=== PATIENT | male | born 1985 | race Caucasian/White ===

== ENCOUNTER 2018-08-04 09:35 | Emergency (ER) | payer OTHER ==
[2018-08-04 09:48] VITALS: BP 139/88
--- NOTE | 2018-08-04 10:25 | ED Physician Documentation ---
History of Present Illness - Stated complaint Stated Complaint: FISH HOOK ON R HAND - Chief complaint Chief Complaint: Trauma Ext - History obtained from History obtained from: Patient - History of Present Illness Timing: Prior to arrival - Additonal information Additional information: Patient is a previously healthy, right-handed, 33-year-old male presenting with a fishhook embedded in the distal aspect of his right ring finger. Patient was fishing earlier this morning when this occurred. Patient has been unable to dislodge the fishhook. Tetanus current. Patient reports pain with movement, but otherwise has no significant complaints. Patient denies change in strength, range of motion, or sensation to hand. Patient also denies any other injuries. No other improving or worsening factors noted. Review of Systems Skin: reports: Other (fish hook) PD PAST MEDICAL HISTORY - Past Medical History Neuro: Migraines - Past Surgical History Past Surgical History: No - Present Medications Home Medications: Ambulatory Orders Medication Instructions Recorded Confirmed Amox/Clav 875/125 [Augmentin] 1 each PO Q12H #14 tablet 08/04/18 HYDROcod/ACETAM 5/325 [Dacoma 5/325] 1 each PO Q6H #10 tablet 08/04/18 - Allergies Allergies/Adverse Reactions: Allergies Allergy/AdvReac Type Severity Reaction Status Date / Time No Known Drug Allergies Allergy Verified 08/04/18 09:48 - Social History Does the pt smoke?: No Smoking Status: Never smoker Does the pt drink ETOH?: No Does the pt have substance abuse?: No PD ED PE NORMAL - Vitals Vital signs reviewed: Yes - General General: Alert and oriented X 3, No acute distress, Well developed/nourished - HEENT HEENT: Atraumatic - Cardiac Cardiac: Strong equal pulses (Cap refill brisk) - Derm Derm: Normal color, Warm and dry, No rash, Other (Fish hook in right finger) - Extremities Extremities: No deformity, No tenderness to palpate - Neuro Neuro: Alert and oriented X 3, No motor deficit, No sensory deficit - Psych Psych: Normal mood, Normal affect Results - Vitals Vitals: Vital Signs - 24 hr 08/04/18 09:46 Temperature 36.7 C Heart Rate 80 Respiratory 18 Rate Blood Pressure 139/88 H O2 Saturation 98 Oxygen O2 Source Room air Procedures - Regional nerve block Nerve block site: Digital - note digit(s) Right / left: Right (right ring) Nerve block anesthesia: Lidocaine 1% Nerve block aftercare: Moderate Anesthesia, Patient tolerated well, No complications PD MEDICAL DECISION MAKING - ED course Complexity details: reviewed results, re-evaluated patient, considered differential, d/w patient, d/w family ED course: Patient presenting with embedded fish hook in his hand. X-rays obtained which not find evidence of being lodged in the bone or other complicating issues. Digital block performed and fishhook was able to be removed. Given the situation, felt appropriate to start antibiotics to prevent infection, as well as give pain medications to help relieve discomfort. Discussed other supportive cares, hygiene, return precautions, and appropriate follow-up. Patient voiced understanding and is comfortable with discharge plan. Departure - Departure Disposition: 01 Home, Self Care Clinical Impression: Finger injury Condition: Good Instructions: ED Laceration Hand Follow-Up: your,doctor [Other] - Within 3 Days Prescriptions: Amox/Clav 875/125 [Augmentin] 1 each PO Q12H #14 tablet HYDROcod/ACETAM 5/325 [[place] 5/325] 1 each PO Q6H #10 tablet Comments: Please keep wound clean and dry using running water and soap only. Do not submerge underwater. Please take antibiotics as prescribed to prevent infection. May apply bacitracin or Neosporin daily and appropriate bandaging. Please also use Dacoma as prescribed for pain control. If taking Dacoma, do not combine with alcohol, Tylenol, or driving. Dacoma can cause constipation and you may consider using stool softener or laxative. If not using Dacoma, please use ibuprofen/Tylenol. Follow-up with primary care physician in next 2 to 3 days and return to ED sooner if experience worsening symptoms or other concerns. Discharge Date/Time: 08/04/18 13:27
[2018-08-04] MEDS ORDERED: LIDOCAINE 1% 2 ML VIAL SUBQ STA (12:23)
--- NOTE | 2018-08-04 13:27 | XRAY Report ---
Reason: fish hook placement Procedure Date: 08/04/2018 Accession Number: [id number] / [id number] Procedure: XR - Hand 3 View RT CPT Code: FULL RESULT: EXAM: RIGHT HAND RADIOGRAPHY EXAM DATE: 08/04/2018 11:28 AM. CLINICAL HISTORY: Fish hook placement. COMPARISON: None. TECHNIQUE: 3 views. FINDINGS: Bones: No fractures or bone lesions. Joints: Unremarkable. Soft Tissues: Marmet projects over the distal fourth digit. IMPRESSION: 1. No acute osseous abnormality. 2. Marmet projects over the distal fourth digit. RADIA
== END 2018-08-04 13:27 | disposition home or self-care (01) ==
LOC: ED 09:35
DX: S61.244A Puncture wound with foreign body of right ring finger without damage to nail, initial encounter (principal); W26.8XXA Contact with other sharp object(s), not elsewhere classified, initial encounter; W45.8XXA Other foreign body or object entering through skin, initial encounter; Y93.89 Activity, other specified
CPT/HCPCS: 64450; 99282; 99283